=== PATIENT | male | born 1955 | race Caucasian/White ===

== ENCOUNTER → 2018-10-31 | Outpatient (CLI) | payer OTHER ==
[~2018-10-31] MED LIST: DEPO METHYLPREDNISOLONE 40 MG/ML SDV ONE; IOPAMIDOL (ISOVUE 370) 100 ML BTL IV ONE; LIDOCAINE 1% 300 MG/30 ML SDV ONE; ROPIVACAINE HCL 150 MG/30 ML INJ ONE
== END ==
LOC: FIMAGING 10:32
PROVIDERS: ATTEND Orthopaedic Surgery
PROC: 0S993ZZ Drainage of Right Hip Joint, Percutaneous Approach (ICD-10-PCS; principal; 2018-10-31)
DX: M16.11 Unilateral primary osteoarthritis, right hip (principal)
CPT/HCPCS: J1030; J2795; Q9967